=== PATIENT | female | born 1945 | race Caucasian/White ===

== ENCOUNTER 2017-05-19 16:32 | Emergency (ER) | payer MEDICARE, BC ==
[~2017-05-19] VITALS: Ht 162.6 cm; Wt 70.6 kg
[~2017-05-19 16:32] MED LIST: DIAZ5TAB4 PO; DICL75TA2 PO; HYDR-3237 PO; HYDR-3245 PO; LISI1TAB5 PO; POTA10TA12 PO
[2017-05-19 16:40] VITALS: BP 214/98
[2017-05-19] MEDS ORDERED: LIDOCAINE-MPF 1%, 5ML ONE (16:53)
[2017-05-19] MEDS ORDERED: DIPH,PERTUSS(ACELL),TET VAC/PF 0.5 ML IM-VACC ONE ×2 (16:53→17:00)
[2017-05-19] MEDS ORDERED: L.E.T SOLUTION TP ONE (17:00)
[2017-05-19] MEDS ORDERED: LIDOCAINE-MPF 1%, 5ML INFIL ONE (17:00)
[2017-05-19] MEDS ORDERED: BACITRACIN ZINC OINT 500U/GM, 0.9 GM ONE (18:11)
== END 2017-05-19 18:34 | disposition home or self-care (01) ==
LOC: ED 18:15
DX: S81.811A Laceration without foreign body, right lower leg, initial encounter (principal); I10 Essential (primary) hypertension; W14.XXXA Fall from tree, initial encounter; Y93.89 Activity, other specified; Y92.009 Unspecified place in unspecified non-institutional (private) residence as the place of occurrence of the external cause; Y99.8 Other external cause status
CPT/HCPCS: 12002; 90471; 90715; 93005; 99283